=== PATIENT | male | born 1985 | race American Indian/Alaskan Native ===

== ENCOUNTER 2024-07-26 16:24 | Emergency (ER) | payer OTHER ==
[2024-07-26] MEDS: Ketorolac 30 MG/ML SDV IM ONE (16:31)
== END 2024-07-26 17:03 | disposition home or self-care (01) ==
LOC: DL.ED 16:24
DX: S43.101A Unspecified dislocation of right acromioclavicular joint, initial encounter (principal); X50.9XXA Other and unspecified overexertion or strenuous movements or postures, initial encounter
CPT/HCPCS: 73030; 96372; 99283; J1885